=== PATIENT | female | born 1970 | race Caucasian/White ===

== ENCOUNTER 2025-03-07 09:52 | Day surgery (SDC) | payer MEDICAID, SELFPAY ==
[2025-03-07] VITALS (25 sets, daily range): BP systolic 118–160; BP diastolic 65–93; PULSE 56–90; RESP 12–20; TEMP 35.7–37.5; O2SAT 92–99; BMI 32.5
[2025-03-07] MEDS: LACTATED RINGERS 1000 ML 1,000 ML 100 ML IV (10:40)
[2025-03-07] MEDS: SODIUM CHLORIDE 0.9 % (FLUSH) 10 ML SYRINGE IVF ×2 (10:40→20:14)
[2025-03-07] MEDS: ACETAMINOPHEN 500 MG TABLET 1000 MG PO ×3 (10:40→22:49)
[2025-03-07] MEDS: OXYCODONE (CR) 10 MG TAB.ER.12H PO (10:40)
--- NOTE | 2025-03-07 10:50 | W.PM.H&PU ---
History & Physical Update History & Physical Update H&P Reviewed and patient assessed: No changes noted
--- NOTE | 2025-03-07 10:52 | CRLHL7_ITS ---
For Patients: As a result of the Cures Act, medical imaging exams and procedure reports are released immediately into your electronic medical record. You may view this report before your referring provider. If you have questions, please contact your health care provider. Indication: POST OP TKA Technique: Two views right knee Findings/Impression: Hardware from a right total knee arthroplasty is in satisfactory position. Bone alignment is normal. No sign of acute fracture. Postop changes are within normal limits. Dictated by Girma Darby MD @ 03/10/2025 10:14:31 AM (Electronically Signed)
[2025-03-07] MEDS: MIDAZOLAM HCL 1 MG/ML inj IVP (12:09)
--- NOTE | 2025-03-07 12:12 | SUR.PREOP ---
TIME?OUT:?1207 PT/RN/MDA?VERIFICATION?OF?SURGICAL?SITE-RIGHT KNEE, NERVE BLOCK,?PROCEDURE,?AND?CONSENT OBTAINED?PRIOR?TO?INVASIVE?PROCEDURE.
--- NOTE | 2025-03-07 12:44 | P.NB_ITS ---
Nerve Block Nerve Block Time Seen by Provider: 12:05 Date Seen: 03/07/25 Type of block requested by surgeon for post-operative analgesia: adductor canal Side: right Time out performed: Yes Verification of patient name: Yes Verification of date of : Yes Site marking: site marked Name of person performing procedure: Garret Madera Continuous monitoring Was continuous monitoring of O2 sat, B/P, registered radiographer, recorded every 15 minutes?: Yes Procedure Checklist: sterile prep, needles and gloves Ultrasound guided. Images saved: Yes Medications given in 5ml increments after negative aspiration: Ropivicaine %: 0.5 mL: 30 Needle gauge: 20 Precedex (mcg): 25 Patient tolerated procedure well: Yes Additional comments: Injected in 5mL increments after negative aspiration Block Charges Block Charge (with Pro Fee): Femoral Nerve Use of Ultrasound Machine for Block: Yes- US Guidance/pain block
--- NOTE | 2025-03-07 12:45 | W.PM.NB ---
Nerve Block Nerve Block Time Seen by Provider: 12:08 Date Seen: 03/07/25 Type of block requested by surgeon for post-operative analgesia: geniculars Side: right Time out performed: Yes Verification of patient name: Yes Verification of date of : Yes Site marking: site marked Name of person performing procedure: Garret Madera Continuous monitoring Was continuous monitoring of O2 sat, B/P, cardiac catheterization technologist, recorded every 15 minutes?: Yes Procedure Checklist: sterile prep, needles and gloves Ultrasound guided. Images saved: No Medications given in 5ml increments after negative aspiration: Ropivicaine %: 0.5 mL: 12 Needle gauge: 25 Patient tolerated procedure well: Yes Additional comments: Injected in 4 mL increments after negative aspiration Block Charges Block Charge (with Pro Fee): Genicular Nerve Block Use of Ultrasound Machine for Block: No
[2025-03-07] MEDS: TRANEXAMIC ACID 100 MG/ML INJ 1000 MG IV (12:48)
[2025-03-07] MEDS: LACTATED RINGERS 1000 ML 1,000 ML 125 ML IV (13:22)
--- NOTE | 2025-03-07 14:28 | P.ORPRC_ITS ---
Procedure Note Date of procedure: 03/07/25 Procedure: PREOPERATIVE DIAGNOSIS: 1. Right knee osteoarthritis, primary, severe POSTOPERATIVE DIAGNOSIS: 1. Right knee osteoarthritis, primary, severe PROCEDURE: 1. Right total knee arthroplasty, Press-Fit, Rotating Platform - No tourniquet SURGEON: Franc Brown MD. MIRROR SPECIALIST: Chon Leiva PA-C - Of note, a skilled assistant softball coach was critical for this case to aid in patient positioning, tissue retraction, limb manipulat ion/positioning, and closure. ANESTHESIA: Spinal anesthetic EBL: 100ml ml IMPLANTS: DePuy J&J uncemented TKA - Attune PS femur size 5 narrow Size 3 tibia Rotating Platform 5mm RP poly spacer 38 mm Affixium patella TOURNIQUET: None COMPLICATIONS: None evident INDICATIONS: The patient is a pleasant 55yo Female who has experienced severe right knee pain and difficulty bearing weight. Workup included x-rays which revealed severe osteoarthrosis in the knee. Given the deformity, the dysfunction, and the pain, as well as the failure of nonoperative management, recommendation was made for surgery. FINDINGS: Full thickness chondromalacia patellorfemoral and medial compartments. To a lesser degree lateral compartment as well. Degenerative meniscus pathology (medial > lateral). Moderate effusion upon entering the joint. DESCRIPTION OF PROCEDURE: Following a thorough discussion of risks, benefits, and alternatives consent was obtained and the right knee was marked. The patient was brought to the operating room and placed supine on the operating table. Induction of anesthesia was undertaken. 2 g IV Ancef and 1 g tranexamic acid was administered within 1 hr of incision preoperatively. Proper time-out was performed identifying proper patient, site, procedure. The operative extremity was prepped and draped in the appropriate sterile fashion using ChloraPrep after the patient was positioned supine with all bony prominences well padded.[ Esmark wrap followed by tourniquet inflation completed.] A longitudinal, anterior, midline skin incision was made starting approximately 3cm proximal to the superior pole of the patella and advanced distal to the tibial tubercle. A sub vastus approach was utilized. After mobilizing the patella, the retropatellar fatpad was resected and the synovium in the suprapatellar pouch excised to visualize the anterior femoral cortex. Patellar prep showed initial measurement/thickness of 22 mm. It was resected back to approximately 14 mm. The patella prep was completed with drilling and a trial placed followed by a protector plate until final component implantation. Femoral preparation was performed via an intramedullary guide. Step drill allowed access into the femoral canal. The distal cutting guide was placed with 5? of valgus and 10 mm cut on the distal femur. Femur was sized using a anterior referencing guide (in addition to referencing the transepicondylar axis and Panola's line) in 3? of external rotation. This was found to have a best fit with the sizing noted above. The 4 in 1 cutting block was then placed, and the distal femur shaped accordingly. The box cut was then completed. We turned our attention to the proximal tibia. Extramedullary guide was utilized for cutting with the goal of being 90 degree cut from the mechanical axis of the tibia in the varus/valgus plane utilizing tibial crest as the primary alignment. Initially a 4 mm resection was performed from the medial tibial plateau. Ultimately, balancing was achieved in both flexion and extension in both varus and valgus. The knee was able to achieve full extension comfortably. It was sized to be a best fit with as noted above. At this stage, trial implants were removed, the tibia and femoral and patellar components were opened and inserted. The real poly spacer was opened and inserted. A 3 min Betadine soak performed. Finally, a final irrigation round with normal saline was performed. Closure performed with 0 PDS and #0 Stratafix for the quad tendon/retinaculum. 2-0 Vicryl/Stratafix for the subcutaneous and 4-0 Monocryl for subcuticular closure. Dressings were applied and the patient was awoken from anesthesia after the tourniquet deflated and transferred the PACU in stable condition. A skilled assistant softball coach was critical for this case to aid in patient positioning, tissue retraction, bone exposure, limb manipulation/positioning, patient safety, and closure. PLAN: 1. Weight bear as tolerated operative extremity. 2. 23 hr perioperative antibiotics. 3. Ice. 4. PT/OT consults for ambulation assistance/mobility education. 5. Social work consult for discharge planning. 6. DVT prophylaxis with at SCDs, and aspirin twice daily.
--- NOTE | 2025-03-07 15:36 | P.ANES_ITS ---
Anesthesia Charges Start Date/Time Anesthesia Start Date: 03/07/25 Anesthesia Start Time: 12:30 Stop Date/Time Anesthesia Stop Date: 03/07/25 Anesthesia Stop Time: 15:17 Coding CPT Codes CPT Codes: ANESTH KNEE ARTHROPLASTY - 43710 ([id number]) P2 - PATIENT W/MILD SYST DISEASE, QZ - ULTRASOUND SONOGRAPHER SVC W/O SUMMER LAW CLERK BY
--- NOTE | 2025-03-07 15:36 | W.ANESCHARGE ---
Anesthesia Charges Start Date/Time Anesthesia Start Date: 03/07/25 Anesthesia Start Time: 12:30 Stop Date/Time Anesthesia Stop Date: 03/07/25 Anesthesia Stop Time: 15:17 Coding CPT Codes CPT Codes: ANESTH KNEE ARTHROPLASTY - 30299 ([id number]) P2 - PATIENT W/MILD SYST DISEASE, QZ - HEAD PACKAGER SVC W/O BRANCH GENERAL MANAGER BY
--- NOTE | 2025-03-07 16:16 | SUR.PHASEI ---
patient met discharge criteria per anesthesia
[2025-03-07] MEDS: GABAPENTIN 300 MG CAPSULE 600 MG PO (16:34)
[2025-03-07] MEDS: diazePAM 5 MG/ML inj IV (17:14)
--- NOTE | 2025-03-07 18:23 | PM.IMCN1 ---
Date of Consult Consult date: 03/07/25 Requesting Physician: Orthopedics Primary Care Provider: Sudhir Diaz PA-C Consult Narrative Narrative: HOSPITALIST CONSULT Procedure: Right total knee arthroplasty, Press-Fit, Rotating Platform - No tourniquet SURGEON: Franc Brown MD. ANESTHESIA: Spinal anesthetic EBL: 100ml ml TOURNIQUET: None COMPLICATIONS: None evident The hospital medicine team was asked by the orthopedic surgery team to manage the patient's chronic pain, hypertension There have been no perioperative complications. I have updated and reviewed the active medical problems, past medical history, past surgical history, social history, allergies and medications in our electronic EMR. This includes a cross reference to care everywhere in [facility] and with [employer] [facility] databases. PHYSICAL EXAM: CODE STATUS: FULL CODE CONSTITUTIONAL: anxious. moaning. son and mother are bedside - massaging patient. she keeps her eyes closed. VITAL SIGNS: see record. HEENT: Normocephalic, atraumatic. PERRL, EOMI, conjunctivae pink, no scleral icterus. Ears and nose externally normal. Pharynx normal. NECK: No JVD. No carotid bruit, no thyromegaly, no adenopathy. CHEST: Clear to auscultation bilaterally HEART: S1 and S2 normal. ABDOMEN: Flat, soft, nontender. Normal bowel sounds. Moderately obese. EXTREMITIES: No edema. MUSCULOSKELETAL: right knee surgical dressing clean, dry. NVI with heel slides and sensation. NEURO: Cranial nerves intact. Mentation normal. Normal affect. SKIN: No rashes, petechiae, concerning changes PSYCHIATRIC: Mentation normal. INVESTIGATIONS: EMR Reviewed; Pre-OP Reviewed DISPOSITION: DVT: Agree with Ortho team decision GI: PO intake [facility] Medical History (Updated 03/07/25 @ 19:24 by Amarilis Trammell MD) Failed back surgical syndrome ?M96.1 - Postlaminectomy syndrome, not elsewhere classified (ICD-10) Hyperlipidemia ?E78.5 - Hyperlipidemia, unspecified (ICD-10) Osteoarthritis of right knee ?M17.11 - Unilateral primary osteoarthritis, right knee (ICD-10) Genital herpes ?A60.00 - Herpesviral infection of urogenital system, unspecified (ICD-10) Hypertension ?I10 - Essential (primary) hypertension (ICD-10) Vitamin D deficiency ?E55.9 - Vitamin D deficiency, unspecified (ICD-10) Basal cell carcinoma (BCC) ?C44.91 - Basal cell carcinoma of skin, unspecified (ICD-10) Cervical disc herniation ?M50.20 - Other cervical disc displacement, unspecified cervical region (ICD-10) Tachycardia ?R00.0 - Tachycardia, unspecified (ICD-10) Stress ?F43.9 - Reaction to severe stress, unspecified (ICD-10) Anxiety ?F41.9 - Anxiety disorder, unspecified (ICD-10) Obstructive sleep apnea ?G47.33 - Obstructive sleep apnea (adult) (pediatric) (ICD-10) Irritable bowel syndrome (IBS) ?K58.9 - Irritable bowel syndrome, unspecified (ICD-10) Mouth symptom ?R19.8 - Other specified symptoms and signs involving the digestive system and abdomen (ICD-10) Bilateral hip pain ?M25.551 - Pain in right hip (ICD-10) ?M25.552 - Pain in left hip (ICD-10) Acetabular labrum tear ?S73.199A - Other sprain of unspecified hip, initial encounter (ICD-10) Tendinopathy ?M67.90 - Unspecified disorder of synovium and tendon, unspecified site (ICD-10) History of ileus ?Z87.19 - Personal history of other diseases of the digestive system (ICD-10) Surgical History (Updated 03/07/25 @ 18:50 by Amarilis Trammell MD) S/P total knee arthroplasty ?Z96.659 - Presence of unspecified artificial knee joint (ICD-10) History of lumbar fusion ?Z98.1 - Arthrodesis status (ICD-10) History of section ?Z98.891 - History of uterine scar from previous surgery (ICD-10) History of cholecystectomy ?Z90.49 - Acquired absence of other specified parts of digestive tract (ICD-10) History of appendectomy ?Z90.49 - Acquired absence of other specified parts of digestive tract (ICD-10) History of cervical discectomy (07/13/17) ?Z98.890 - Other specified postprocedural states (ICD-10) Social History What is your current living situation?: I presently have a place to live Problems where you live: no known problems In the past 12 months, utilities in danger of being shut off: no In past 12 months, lack of transportation kept you from medical appts, meetings, work, or getting things needed for daily living: no In the past 12 mos, have been you worried that your food would run out before you had money to buy more?: never true In the past 12 mos, the food you bought just didn't last and you didn't have money to buy more?: never true Highest level of school completed/degree received: Bachelor's degree Smoking Status: Never smoker Do you use any of these nicotine containing products: None How often do you have a drink containing alcohol: never How often do you have six or more drinks on one occasion: Never AUDIT-C Alcohol total score: 0 Non-prescribed substance use: denies use Caffeine: Yes (soda 3 times a week) How often does anyone, including family, friends and others, physically hurt you: never How often does anyone, including family, friends and others, insult or talk down to you: never How often does anyone, including family, friends and others, threaten you with harm: never How often does anyone, including family, friends and others, scream or curse at you: never service: No Meds Home Medications and Allergies Home Medications ?Medication ?Instructions ?Recorded ?Confirmed ?Type ascorbic acid (vitamin C) 500 mg 1,000 mg PO DAILY 12/27/24 03/07/25 History capsule carvedilol 25 mg tablet 25 mg PO BID 12/27/24 03/07/25 History cholecalciferol (vitamin D3) 50 125 mcg PO QDAY 12/27/24 03/07/25 History mcg (2,000 unit) capsule duloxetine 60 mg capsule,delayed 60 mg PO DAILY 12/27/24 03/07/25 History release hydrochlorothiazide 25 mg tablet 25 mg PO DAILY 12/27/24 03/07/25 History lorazepam 1 mg tablet 1 - 2 mg PO BID PRN anxiety 12/27/24 03/07/25 History magnesium glycinate mg PO 12/27/24 12/27/24 History metronidazole 0.75 % topical cream 1 applic topical DAILY 12/27/24 03/07/25 History omega 6-ddc-utw-fish oil 300 1 cap PO QDAY 12/27/24 03/07/25 History mg-1,000 mg capsule (Fish Oil) ondansetron HCl 8 mg tablet 8 mg PO Q8H PRN nausea/vomiting 12/27/24 03/07/25 History rosuvastatin 5 mg tablet 5 mg PO QPM 12/27/24 03/07/25 History gabapentin 300 mg capsule 600 mg PO TID 02/24/25 03/07/25 History lisinopril 5 mg tablet 5 mg PO DAILY 02/24/25 03/07/25 History tumeric PO DAILY 02/24/25 02/24/25 History zinc glycinate 20 mg capsule 50 mg PO QDAY 02/24/25 03/07/25 History Allergies Allergy/AdvReac Type Severity Reaction Status Date / Time adhesive tape Allergy Rash Verified 03/07/25 10:05 latex Allergy Hives Verified 03/07/25 10:05 meperidine Allergy Verified 03/07/25 10:05 Sulfa (Sulfonamide Allergy Rash Verified 03/07/25 10:05 Antibiotics) Exam Const: Vital Signs, click to edit/add: Vital Signs - 24 hr 03/07/25 10:19 03/07/25 12:15 03/07/25 12:20 Temperature 96.3 F L Pulse Rate 66 64 56 L Pulse Rate [Right Pulse Oximeter] Respiratory Rate 16 14 14 Blood Pressure 148/93 H 146/79 H 149/86 H Blood Pressure [Le ft Arm] Pulse Oximetry 96 98 98 Oxygen Delivery Me thod Room Air Nasal Cannula Nasal Cannula Oxygen Flow Rate 3 3 03/07/25 12:25 03/07/25 15:14 03/07/25 15:20 Temperature 99.5 F 99.5 F Pulse Rate 70 78 73 Pulse Rate [Right Pulse Oximeter] Respiratory Rate 12 15 12 Blood Pressure 144/82 H 131/80 129/81 Blood Pressure [Le ft Arm] Pulse Oximetry 99 94 95 Oxygen Delivery Me thod Nasal Cannula Nasal Cannula Nasal Cannula Oxygen Flow Rate 3 2 2 03/07/25 15:25 03/07/25 15:30 03/07/25 15:35 Temperature 99.5 F 99.5 F 99.5 F Pulse Rate 70 71 71 Pulse Rate [Right Pulse Oximeter] Respiratory Rate 12 12 12 Blood Pressure 138/75 131/85 144/74 H Blood Pressure [Le ft Arm] Pulse Oximetry 95 95 96 Oxygen Delivery Me thod Nasal Cannula Nasal Cannula Nasal Cannula Oxygen Flow Rate 2 2 2 03/07/25 15:40 03/07/25 15:45 03/07/25 15:50 Temperature 99.5 F 99.5 F 99.5 F Pulse Rate 76 69 73 Pulse Rate [Right Pulse Oximeter] Respiratory Rate 12 12 12 Blood Pressure 133/82 136/81 137/83 Blood Pressure [Le ft Arm] Pulse Oximetry 97 97 98 Oxygen Delivery Me thod Nasal Cannula Nasal Cannula Nasal Cannula Oxygen Flow Rate 2 2 2 03/07/25 15:55 03/07/25 16:00 03/07/25 16:06 Temperature 99.5 F 99.5 F 97.8 F Pulse Rate 87 78 Pulse Rate [Right Pulse Oximeter] 76 Respiratory Rate 12 12 18 Blood Pressure 134/81 146/85 H Blood Pressure [Le ft Arm] 138/93 H Pulse Oximetry 95 95 97 Oxygen Delivery Me thod Room Air Room Air Room Air Oxygen Flow Rate 03/07/25 16:06 Temperature 97.8 F Pulse Rate 76 Pulse Rate [Right Pulse Oximeter] Respiratory Rate 18 Blood Pressure 138/93 H Blood Pressure [Le ft Arm] Pulse Oximetry 97 Oxygen Delivery Me thod Room Air Oxygen Flow Rate Assessment and Plan Assessment and plan (1) S/P total knee arthroplasty: Problem comment: Right. Dr. Brown. 03/07/25. Hospital medicine team is happy to follow the patient through to discharge. We are expecting a routine postoperative course. I have reconciled home medications and completed our part of the discharge. -I will hold antihypertensives as indicated per our practice standard -I will have continuous pulse oximeter as there is a concern for hypoxia (anesthesia, KEVEN, COPD, etc) Status: Acute (2) Failed back surgical syndrome: Problem comment: -2001, L3-L5 fusion with Dr. Dawson -2017 cervical disc replacement at C4-C6 with Dr. Garcia -2021 series facet injections and radiofrequency ablations -October of 2022 Nevro lumbar SCS implant -pain managed with gabapentin, cymbalta (previous metaxalone/flexeril ineffective) -inpatient use of Lidoderm patch and benzodiazepines immediate post op for pain management Status: Acute (3) Obstructive sleep apnea: Problem comment: home cpap in use Status: Acute (4) Hypertension: Problem comment: home meds: coreg, hctz, lisinopril. will add back home meds as needed Status: Acute (5) Anxiety: Problem comment: a large component of her coping/pain management Status: Acute (6) Hyperlipidemia: Problem comment: statin therapy Status: Acute
--- NOTE | 2025-03-07 18:39 | RESP.RT ---
Patient has home CPAP set up in room with an O2 bleed in. Titrate O2 flow meter to keep SATs 88-92%. Liter flow will vary with patient leak, so aim for target SAT.
[2025-03-07] MEDS: ONDANSETRON 2 MG/ML inj 4 MG IVP (18:45)
[2025-03-07] MEDS: CEFAZOLIN 2 GM in 0.9 % SODIUM CHLORIDE Mini-bag 100 ML IVPB (18:46)
[2025-03-07] MEDS: LACTATED RINGERS 1000 ML 1,000 ML 75 ML IV (18:47)
--- NOTE | 2025-03-07 20:10 | PC.NURSE ---
End of Shift: Patient pleasant and cooperative, arrived to floor from surgery in 10/10 pain. Patient's pain decreased to 8/10 at 1730. Patient received Dilaudid once, 10 mg of oxy twice and 5mg of Valium. After Valium was given patient still reported a lot of pain but she crying stopped. Active ice and heat was used from hip down, RN massaged hip and buttocks along with family, patient also turned on her back stimulator, and patient was repositioned multiple times. Patient is vitally stable, lungs clear, BS WNL, IV running LR at 75. Patient sats did decrease after valium was given, cpaps was in use with 2 L of oxygen bled threw. Patient is now up in chair, patient used commode to urinate as she could not handle walking all the way to the toilet. Patient is on 1 L NC while up in chair with sats in low 90s. Patient is 1 assist/walker gb. Patient did report nausea after ambulation, zophran was given. Patient tolerated crackers and was in the process of eating a sandwich.
[2025-03-07] MEDS: ASPIRIN 81 MG TABLET EC PO (20:14)
[2025-03-07] MEDS: SENNOSIDES 1 TAB TABLET 2 TAB PO (20:14)
[2025-03-07] MEDS: LIDOCAINE 5% PATCH 1 PATCH TRANSDERMA (21:17)
[2025-03-07] MEDS: BENZOCAINE/MENTHOL 1 EACH LOZENGE MUCOUS MEM (21:31)
[2025-03-08] MEDS: ONDANSETRON 2 MG/ML inj 4 MG IVP (00:29)
[2025-03-08 00:40] VITALS: O2SAT 93
[2025-03-08] MEDS: CEFAZOLIN 2 GM in 0.9 % SODIUM CHLORIDE Mini-bag 100 ML IVPB ×2 (02:49→11:39)
[2025-03-08 03:00] VITALS: BP 120/83; PULSE 71; RESP 16; TEMP 36.2; O2SAT 93
[2025-03-08] MEDS: CYCLOBENZAPRINE HCL 10 MG TABLET PO (04:12)
[2025-03-08] MEDS: ACETAMINOPHEN 500 MG TABLET 1000 MG PO ×2 (06:07→11:38)
[2025-03-08 07:00] VITALS: BP 101/86; PULSE 84; RESP 16; TEMP 36.6; O2SAT 95
--- NOTE | 2025-03-08 07:25 | PC.NURSE ---
Pt up to BR with gait belt, walker, assist 1. Active ice to right knee and hip. See MAR for medications.
[2025-03-08 08:15] VITALS: PULSE 84; RESP 16; O2SAT 95
[2025-03-08] MEDS: SENNOSIDES 1 TAB TABLET 2 TAB PO (08:17)
[2025-03-08] MEDS: ASPIRIN 81 MG TABLET EC PO (08:18)
[2025-03-08] MEDS: DULOXETINE 30 MG CAPSULE DR 60 MG PO (08:20)
[2025-03-08 11:00] VITALS: BP 113/90; PULSE 82; RESP 12; O2SAT 94
--- NOTE | 2025-03-08 11:02 | PM.ORPN ---
Subjective Subjective Date Seen: 03/08/25 Principal diagnosis: Status postop day 1 right total knee arthroplasty Interval history: Patient reports doing okay. She was having more notable pain especially her right hip/groin postop day 0, which is improving. Rating right hip pain at a 6, right knee pain 5. Having ice pack underneath her knee is helpful, which causes her knee to remain flexed. Of note, she has a notable history of lumbar and even cervical back issues with a nerve stimulator for her lumbar pain. No acute events over night. She takes muscle relaxants at home, primarily for her back pain. Pain managed with scheduled and PRN medications, ice. DVT prophylaxis: 81 mg aspirin by mouth twice daily, SCDs, walking. Denies fevers, chills, aches, N/V, CP, SOB/YOUNG, or lightheadedness. Reports feeling very tired since not sleeping very well last night. Ortho Exam Narrative Exam Narrative: -Patient appears comfortable; no apparent acute distress -She is falling asleep during our conversation. Not in obvious significant pain -Alert and oriented times 3 -Operative knee mild-moderately swollen; soft tissues supple; small area of ecchymosis just distal and lateral to the patella no erythematous streaking Warmth appropriate -Surgical dressing clean, dry, intact; no drainage -Bilateral calfs soft; no significant swelling, edema, tenderness, erythema, discoloration, warmth, or palpable cords -Ice pack behind her knee, with static knee flexion approximately 20?. Approximately 5 minutes of elevation underneath her heel/ankle cause increased posterior right knee pain, anterior proximal hip and groin discomfort. -2+ DP/PT pulses, intact dermatomes and myotomes distally (5/5 strength) Const Vital Signs, click to edit/add: Vital Signs - 24 hr 03/07/25 12:15 03/07/25 12:20 03/07/25 12:25 Temperature Pulse Rate 64 56 L 70 Pulse Rate [Right Pulse Oximeter] Respiratory Rate 14 14 12 Blood Pressure 146/79 H 149/86 H 144/82 H Blood Pressure [Left Arm] Blood Pressure [Right Arm] Pulse Oximetry 98 98 99 Oxygen Delivery Method Nasal Cannula Nasal Cannula Nasal Cannula Oxygen Flow Rate 3 3 3 03/07/25 15:14 03/07/25 15:20 03/07/25 15:25 Temperature 99.5 F 99.5 F 99.5 F Pulse Rate 78 73 70 Pulse Rate [Right Pulse Oximeter] Respiratory Rate 15 12 12 Blood Pressure 131/80 129/81 138/75 Blood Pressure [Left Arm] Blood Pressure [Right Arm] Pulse Oximetry 94 95 95 Oxygen Delivery Method Nasal Cannula Nasal Cannula Nasal Cannula Oxygen Flow Rate 2 2 2 03/07/25 15:30 03/07/25 15:35 03/07/25 15:40 Temperature 99.5 F 99.5 F 99.5 F Pulse Rate 71 71 76 Pulse Rate [Right Pulse Oximeter] Respiratory Rate 12 12 12 Blood Pressure 131/85 144/74 H 133/82 Blood Pressure [Left Arm] Blood Pressure [Right Arm] Pulse Oximetry 95 96 97 Oxygen Delivery Method Nasal Cannula Nasal Cannula Nasal Cannula Oxygen Flow Rate 2 2 2 03/07/25 15:45 03/07/25 15:50 03/07/25 15:55 Temperature 99.5 F 99.5 F 99.5 F Pulse Rate 69 73 87 Pulse Rate [Right Pulse Oximeter] Respiratory Rate 12 12 12 Blood Pressure 136/81 137/83 134/81 Blood Pressure [Left Arm] Blood Pressure [Right Arm] Pulse Oximetry 97 98 95 Oxygen Delivery Method Nasal Cannula Nasal Cannula Room Air Oxygen Flow Rate 2 2 03/07/25 16:00 03/07/25 16:06 03/07/25 16:06 Temperature 99.5 F 97.8 F 97.8 F Pulse Rate 78 76 Pulse Rate [Right Pulse Oximeter] 76 Respiratory Rate 12 18 18 Blood Pressure 146/85 H 138/93 H Blood Pressure [Left Arm] 138/93 H Blood Pressure [Right Arm] Pulse Oximetry 95 97 97 Oxygen Delivery Method Room Air Room Air Room Air Oxygen Flow Rate 03/07/25 16:26 03/07/25 16:30 03/07/25 16:45 Temperature 97.2 F L 98 F 98 F Pulse Rate Pulse Rate [Right Pulse Oximeter] 78 80 76 Respiratory Rate 20 20 20 Blood Pressure Blood Pressure [Left Arm] 152/91 H 160/65 H 139/76 Blood Pressure [Right Arm] Pulse Oximetry 97 97 97 Oxygen Delivery Method Room Air Room Air Room Air Oxygen Flow Rate 03/07/25 17:00 03/07/25 17:30 03/07/25 18:00 Temperature 98 F 98.4 F 97.2 F L Pulse Rate Pulse Rate [Right Pulse Oximeter] 90 72 78 Respiratory Rate 20 12 16 Blood Pressure Blood Pressure [Left Arm] 121/84 127/81 142/82 H Blood Pressure [Right Arm] Pulse Oximetry 94 93 92 Oxygen Delivery Method Room Air CPAP Nasal Cannula Oxygen Flow Rate 2 1 03/07/25 19:00 03/07/25 20:00 03/07/25 21:00 Temperature 97.2 F L 96.8 F L 97.2 F L Pulse Rate Pulse Rate [Right Pulse Oximeter] 68 72 72 Respiratory Rate 18 18 18 Blood Pressure Blood Pressure [Left Arm] 145/86 H 123/80 130/74 Blood Pressure [Right Arm] Pulse Oximetry 95 94 92 Oxygen Delivery Method Room Air Room Air Room Air Oxygen Flow Rate 03/07/25 22:00 03/08/25 00:40 03/08/25 00:40 Temperature Pulse Rate Pulse Rate [Right Pulse Oximeter] 82 Respiratory Rate 18 Blood Pressure Blood Pressure [Left Arm] 118/76 Blood Pressure [Right Arm] Pulse Oximetry 95 93 93 Oxygen Delivery Method CPAP CPAP Oxygen Flow Rate 2 03/08/25 03:00 03/08/25 07:00 03/08/25 08:15 Temperature 97.2 F L 97.9 F Pulse Rate Pulse Rate [Right Pulse Oximeter] 71 84 Respiratory Rate 16 16 Blood Pressure Blood Pressure [Left Arm] 120/83 Blood Pressure [Right Arm] 101/86 Pulse Oximetry 93 95 95 Oxygen Delivery Method CPAP Room Air Oxygen Flow Rate 03/08/25 08:15 03/08/25 08:15 Temperature Pulse Rate Pulse Rate [Right Pulse Oximeter] 84 Respiratory Rate 16 16 Blood Pressure Blood Pressure [Left Arm] Blood Pressure [Right Arm] Pulse Oximetry 95 Oxygen Delivery Method Room Air Oxygen Flow Rate Assessment and Plan Assessment and plan (1) S/P total knee arthroplasty: Problem details: Right. Dr. Brown. 03/07/25. Hospital medicine team is happy to follow the patient through to discharge. We are expecting a routine postoperative course. I have reconciled home medications and completed our part of the discharge. -I will hold antihypertensives as indicated per our practice standard -I will have continuous pulse oximeter as there is a concern for hypoxia (anesthesia, KEVEN, COPD, etc) Status: Acute (2) Failed back surgical syndrome: Problem details: -2001, L3-L5 fusion with Dr. Dawson -2018 cervical disc replacement at C4-C6 with Dr. Garcia -2021 series facet injections and radiofrequency ablations -October of 2022 Nevro lumbar SCS implant -pain managed with gabapentin, cymbalta (previous metaxalone/flexeril ineffective) -inpatient use of Lidoderm patch and benzodiazepines immediate post op for pain management Status: Acute (3) Obstructive sleep apnea: Problem details: home cpap in use Status: Acute (4) Hypertension: Problem details: home meds: coreg, hctz, lisinopril. will add back home meds as needed Status: Acute (5) Anxiety: Problem details: a large component of her coping/pain management Status: Acute (6) Hyperlipidemia: Problem details: statin therapy Status: Acute Plan - Complete 23 hour perioperative antibiotics. - PT/OT consult for education and assistance. - Social work consult for discharge planning - Prescribed analgesics as needed - we considered OxyContin to aid with her pain, though now she is doing somewhat better. We knowledge that she is taking oxycodone rather frequently here in the hospital, which will decrease in frequency at home. However, patient is falling asleep during conversation, thus I will not prescribe additional pain medication for home on top of acetaminophen, oxycodone, and Vistaril - DVT prophylaxis: 81 mg aspirin by mouth twice daily, walking, and SCDs - Occasional brief periods of time okay to have ice behind the knee, which I would not have present for greater than 20 minute that time, and not frequently. Better to elevate underneath the calf and heel to aid with swelling. - Anticipation is for discharge to home with family/friends today 03/08/2025 if the patient remains medically stable, pain is controlled, and they are safe with mobilization.
--- NOTE | 2025-03-08 14:30 | PC.NURSE ---
Nursing Care Hours: [id number] Pt this shift calm and cooperative, oriented and drowsy. Pt falling asleep while telegraphic typewriter mechanic is talking to her. Pt reports pain as tolerable in morning, pre treated prior to therapies. VSS. Dressing CDI and pedal pulse to R foot faint. CMS intact and color and temp equal bilat. ABX infused per order. IV removed for discharge. Discharge instructions went over with pt and family. Wheeled out to vehicle in stable condition.
== END 2025-03-08 12:44 | disposition home or self-care (01) ==
LOC: OR 09:55 → MEDSURG 09:56
PROVIDERS: PCP Physician Assistant Medical; Visit Provider Orthopaedic Surgery Sports Medicine
PROC: (CPT 27447; principal; 2025-03-07 11:45)
DX: M17.11 Unilateral primary osteoarthritis, right knee (principal); G89.18 Other acute postprocedural pain; I10 Essential (primary) hypertension; G47.33 Obstructive sleep apnea (adult) (pediatric); F41.9 Anxiety disorder, unspecified; E78.5 Hyperlipidemia, unspecified
CPT/HCPCS: 27447; 01402; 64447; 64454; 73560; 76942; 97110; 97116; 97161; 97165; 97535; A9270; C1713; C1776; J0330; J0690; J1100; J1171; J2250; J2405; J2704; J2795; J3010; J3360; J3490; J7120

== ENCOUNTER 2025-04-30 09:51 | Outpatient (CLI) | payer MEDICAID, SELFPAY ==
--- NOTE | 2025-04-30 10:15 | CRLHL7_ITS ---
For Patients: As a result of the Century Cures Act, medical imaging exams and procedure reports are released immediately into your electronic medical record. You may view this report before your referring provider. If you have questions, please contact your health care provider. Indication: hip pain osteoarthritis Procedure : Informed consent was obtained. The site was marked. Time-out was performed. The skin of the left hip was cleansed with ChloraPrep. A sterile drape was placed. 8 cc of 1 percent lidocaine was administered for superficial anesthesia. Subsequently a 22 gauge spinal needle was introduced into the left hip joint under intermittent fluoroscopic guidance. 8 cc of 1 percent lidocaine and 2 cc 40 milligram/cc Depo-Medrol then placed into the left hip joint. The needle was removed and hemostasis achieved with direct pressure. A dressing was placed. The patient tolerated the procedure well without immediate complication. Total fluoroscopy time 9 seconds. Impression: Successful fluoroscopically guided left hip with 80 milligrams of Depo-Medrol. Dictated by Girma Darby MD @ 04/30/2025 11:13:40 AM (Electronically Signed)
== END 2025-04-30 09:52 | disposition home or self-care (01) ==
LOC: RAD 09:51
PROVIDERS: PCP Physician Assistant Medical; Visit Provider Orthopaedic Surgery Sports Medicine
DX: M16.12 Unilateral primary osteoarthritis, left hip (principal); M25.552 Pain in left hip
CPT/HCPCS: 20610; 77002; J1010; Q9966

== ENCOUNTER 2025-05-01 10:50 | Outpatient (CLI) | payer MEDICAID, SELFPAY ==
--- NOTE | 2025-05-01 11:15 | CRLHL7_ITS ---
For Patients: As a result of the Century Cures Act, medical imaging exams and procedure reports are released immediately into your electronic medical record. You may view this report before your referring provider. If you have questions, please contact your health care provider. Indication: Primary osteoarthritis Procedure : Informed consent was obtained. The site was marked. Time-out was performed. The skin of the right hip was cleansed with ChloraPrep. A sterile drape was placed. 8 cc of 1 percent lidocaine was administered for superficial anesthesia. Subsequently a 22 gauge spinal needle was introduced into the right hip joint under intermittent fluoroscopic guidance. Injection of 7 cc 1 percent lidocaine and 2 cc 40 milligrams/cc Depo-Medrol then performed into the right hip joint. The needle was removed and hemostasis achieved with direct pressure. A dressing was placed. The patient tolerated the procedure well without immediate complication. Total fluoroscopy time 13 seconds. Impression: Successful fluoroscopically guided right hip with 80 milligrams of Depo-Medrol. Dictated by Girma Darby MD @ 05/01/2025 12:12:36 PM (Electronically Signed)
== END 2025-05-01 10:51 | disposition home or self-care (01) ==
LOC: RAD 10:51
PROVIDERS: PCP Physician Assistant Medical; Visit Provider Orthopaedic Surgery Sports Medicine
DX: M16.11 Unilateral primary osteoarthritis, right hip (principal)
CPT/HCPCS: 20610; 77002; Q9966